=== PATIENT | female | born 1950 | race Caucasian/White ===

== ENCOUNTER → 2017-03-15 | Outpatient (CLI) | payer MEDICARE, BC ==
[~2017-03-15] MED LIST: AMBIEN PO; AMBIEN10 MG PO; ASPIRIN81 M2 PO; CIPRO PO; ESTRACE2 M1 PO; FLAGYL PO; LOPID600 MG PO; PAROXETINE HCL40 M1 PO; PRINIVIL10 MG PO
--- NOTE | ~2017-03-15 | MR17 ---
[facility] A Service of [facility] RADIOLOGY TEXT RESULTS PATIENT: MIGUEL OVERTON LOCATION: [facility] : 48 UNIT #: [id number] AGE: [address]: Shai Mack MD SEX: F ORDER DR: [id number] [facility] [address] [place], [place] [address] [id number] O MR#: [id number] Acc #: [id number] NAME: MIGUEL OVERTON. : 1950 SEX: F STUDY DATE/TIME: 03/15/2017 7:04 UNIT: [facility] ROOM: STUDY DESCRIPTION: MR Brain WWo Contrast Attending Physician: Shai Mack M.D. Referring Physician: Shai Mack M.D. Ordering Physician: Shai Mack M.D. Primary Care Physician: Shai Mack M.D. MRI CENTER REPORT This report is preliminary unless electronic signature is present. EXAM MRI of the brain with and without contrast dated 03/15/2017. COMPARISON CT head without contrast dated 05/03/2016. HISTORY TIA on 03/04/2017. Patient could not get words out, which lasted for 20 minutes. TECHNIQUE Multisequence multiplanar imaging of the brain was obtained with and without contrast. GFR measured 50. 13 mL of MultiHance was administered intravenously. FINDINGS There is diffuse age-appropriate parenchymal volume. Nonspecific nonenhancing few small hyperintense T2-signal lesions are noted in the periventricular white matter. No acute stroke, enhancing intracranial mass, mass effect, midline shift, hydrocephalus or hemorrhage. Vascular flow voids of the major cerebral arteries and dural venous sinuses are not obstructed completely in these thicker slices. Thick slices through the sella with the pituitary gland, pineal region and upper cervical spine do not demonstrate any significant abnormality. S-shaped nasal septal deviation is noted with a prominent right-sided component. Paranasal sinuses, mastoid air cells, orbits with the ocular structures do not demonstrate any significant abnormality. Postcontrast sequences demonstrate no enhancing lesions. IMPRESSION Nonspecific nonenhancing scattered few hyperintense T2-signal lesions are noted in the brain involving the white matter, likely related to mild STS. [facility] A Service of [facility] & [facility] RADIOLOGY TEXT RESULTS PATIENT: MIGUEL OVERTON [facility] UNIT #: [id number] AGE: [address]: Shai Mack MD SEX: F ORDER DR: chronic microvascular ischemic change or migraine, based on age and statistics. Dictated by... April Pace M.D. THIS IS AN ELECTRONICALLY VERIFIED REPORT April Pace M.D. at 03/16/2017 3:04 PM CPR/whit TD: 03/15/2017 17:17 JOB #: [id number] MRI CENTER REPORT Page 1 of 1 COPY
[2017-03-15 06:50] LABS: POC - CREATININE 1.16 mg/dL (0.44-1.03)
== END | disposition home or self-care (01) ==
LOC: CMRI 06:23
PROVIDERS: Family Medicine
DX: G45.9 Transient cerebral ischemic attack, unspecified (principal); R09.89 Other specified symptoms and signs involving the circulatory and respiratory systems
CPT/HCPCS: 70553; 82565; A9577

== ENCOUNTER → 2017-06-27 | Outpatient (CLI) | payer MEDICARE, BC ==
--- NOTE | ~2017-06-27 | MY11 ---
[facility] A Service of [facility] RADIOLOGY TEXT RESULTS PATIENT: MIGUEL OVERTON LOCATION: [facility] : 48 UNIT #: [id number] AGE: [address]: Shai Mack MD SEX: F ORDER DR: [id number] [address] [address] [id number] O MR#: [id number] Acc #: [id number] NAME: MIGUEL OVERTON : 1950 SEX: F STUDY DATE/TIME: 06/27/2017 13:47 UNIT: [facility] ROOM: STUDY DESCRIPTION: MY Mammogram Screening Dig Cesar Attending Physician: Shai Mack M.D. Referring Physician: Shai Mack M.D. Ordering Physician: Shai Mack M.D. Primary Care Physician: Shai Mack M.D. MEDICAL IMAGING REPORT This report is preliminary unless electronic signature is present. EXAM Digital screening mammogram, 06/27/2017, [facility]. HISTORY 66-year-old woman, long-term hormone replacement. Annual screen. COMPARISON Mammograms date to 10/27/2010 with most recent 09/28/2013. TECHNIQUE Digital imaging of each breast was completed utilizing screening protocol. Review includes FDA-approved CAD device. FINDINGS Breast parenchyma is dense bilaterally with an overall increase in parenchymal density bilaterally compared to the prior images, most recent 08/28/2013. This generally reflects exogenous hormone replacement. There is a generalized nodularity in each breast, slightly dominant on the left. Subareolar duct prominence is noted bilaterally. I see no suspicious mass characteristics. There are no interval occurring microcalcifications and no visualized architectural disturbance. IMPRESSION Benign mammogram. Annual screening recommended. Patients over the age of 40 are entered into a reminder system with target due date for the next mammogram. A result letter will also be sent to the patient. BIRADS: 2 Benign finding. [facility] A Service of [facility] RADIOLOGY TEXT RESULTS PATIENT: MIGUEL OVERTON LOCATION: [facility] : 48 UNIT #: [id number] AGE: [address]: Shai Mack MD SEX: F ORDER DR: Dictated by... Ulisses Fitzpatrick M.D. THIS IS AN ELECTRONICALLY VERIFIED REPORT Ulisses Fitzpatrick M.D. at 06/28/2017 8:08 AM AMAIRANI/vernon TD: 06/27/2017 20:08 JOB #: [id number] MEDICAL IMAGING REPORT Page 1 of 1
== END | disposition home or self-care (01) ==
LOC: SMAM 13:05
DX: Z12.31 Encounter for screening mammogram for malignant neoplasm of breast (principal)
CPT/HCPCS: G0202